=== PATIENT | female | born 1990 | race Caucasian/White ===

== ENCOUNTER 2025-01-28 22:30 | Emergency (ER) | payer MEDICAID ==
[~2025-01-28] VITALS: Ht 172.7 cm; Wt 89.7 kg
[2025-01-28 22:46] VITALS: BP 131/81; PULSE 77; RESP 15; TEMP 96.8; O2SAT 99
--- NOTE | 2025-01-28 23:06 | Physician Documentation ---
HPI ~ General Chief Complaint: Tooth Problem Stated Complaint: ORAL PAIN Time Seen by MD: 23:03 History of Present Illness HPI Comment This is a 34-year-old female that presents to the emergency department if for tooth pain x3 days. Patient reports she has a cracked tooth of the 2nd molar on the left top jaw. Patient reports he has been taking Tylenol and ibuprofen without improvement. Patient reports she has a history of gastric bypass she has to be very careful about taking multiple pills at 1 time as it makes her nauseated. Patient denies fevers significant swelling difficulty swallowing or any other symptoms at this time. Medication Reconciliation Allergies: Coded Allergies: Sulfa (Sulfonamide Antibiotics) (Verified Allergy, Unknown, 01/28/25) Review of Systems ROS As stated above in the HPI, otherwise all systems are reviewed and negative. Physical Exam Vital Signs: Temperature: 96.8, Source: Temporal, Heart Rate: 77, Respiratory Rate: 15, BP: 131/81, Pulse Oximetry: 99, Weight: 89.700 Physical Exam VITALS: Reviewed and as above. GENERAL: Alert, no apparent distress. HEENT: Normocephalic, atraumatic, PERRL, EOMI, dry mucosa, mild erythema and swelling at the gumline immediately around the broken tooth, no lymphadenopathy. RESPIRATORY: Lungs clear, normal breath sounds, no respiratory distress. CHEST: No accessory muscle use, no retractions CV: Regular rate, rhythm, no edema, no murmur, No: JVD GI: Soft, non-tender, bowels sounds present, no rebound, guarding, or rigidity BACK: No CVA tenderness, or swelling MUSCULOSKELETAL No deformities, no edema SKIN: Warm and dry, no rash NEURO: Oriented x4, No motor or sensory deficit PSYCH: Normal mood and affect, no agitation Progress Results/Orders Results/Orders Orders - YUE CABRERA [employer] Amox Tr/Potassium Clavulanate (Augmentin (01/28/25 23:10) Hydrocodone/Apap 5/325mg Tab ([place] 5/32 (01/28/25 23:10) Vital Signs 01/28/25 22:46 Temp 96.8 Pulse 77 Resp 15 B/P (MAP) 131/81 Pulse Ox 99 Medical Decision Making Findings Patient presents for dental pain due to suspected dental andrade. Patient not immunosuppressed, afebrile and well appearing with patent airway, have low suspicfion for deep space infection or any concern for airway compromise. Based on history, physical, and work up. No evidence of tooth fracture, avulsion, or bleeding socket. No evidence of RPA, REWINDER OPERATOR HELPER, Ludwigs angina, periapical abscess. Instructed patient to continue to treat pain with ibuprofen/acetaminophen until they see a dentist. Antibiotics and pain medication prescribed. Patient discharged home and will follow up with dentist. Discussed return precautions for odontogenic infections and other dental pain emergencies. Please take antibiotics as prescribed. Please take pain medication as pre scribed. Please follow up with her primary care provider. Please return to the emergency department with any worsening or recurrent symptoms or any additional concerning symptoms that we discussed here today i.e. fevers increased pain increased redness increased swelling difficulty swallowing or any other concerning symptoms. Differential Dx:Considerations: Include: Alveolar fracture, Alveolar osteitis, ANUG, Facial Cellulitis, Periapical abscess, Peridontal abscess, Post-extraction bleeding, Pulpitis, Tooth avulsion, Tooth eruption, Tooth Fracture, Trigeminal neuralgia, Tooth subluxation, Other Departure Disposition: 01 HOME / SELF CARE / HOMELESS Impression: Primary Impression: Toothache Additional Impression: Dental abscess Condition: Stable Discharge Instructions: Dental Pain, Dental Abscess Additional Instructions: Patient presents for dental pain due to suspected dental andrade. Patient not immunosuppressed, afebrile and well appearing with patent airway, have low suspicfion for deep space infection or any concern for airway compromise. Based on history, physical, and work up. No evidence of tooth fracture, avulsion, or bleeding socket. No evidence of RPA, REWINDER OPERATOR HELPER, Ludwigs angina, periapical abscess. Instructed patient to continue to treat pain with ibuprofen/acetaminophen until they see a dentist. Antibiotics and pain medication prescribed. Patient discharged home and will follow up with dentist. Discussed return precautions for odontogenic infections and other dental pain emergencies. Please take antibiotics as prescribed. Please take pain medication as prescri bed. Please follow up with her primary care provider. Please return to the emergency department with any worsening or recurrent symptoms or any additional concerning symptoms that we discussed here today i.e. fevers increased pain increased redness increased swelling difficulty swallowing or any other concerning symptoms. Referrals: NO PRIMARY CARE PROVIDER (PCP) Prescriptions Hydrocodone Bit/Acetaminophen 5/325 MG ([place] 5/325 MG) 5 Mg/325 Mg Tablet 1 TAB PO Q6H PRN for pain for 3 Days, #12 TAB Prov: YUE CABRERA 01/28/25 Amox Tr/Potassium Clavulanate 875/125 MG (Augmentin 875/125 MG) 875 Mg-125 Mg Tablet 1 TAB PO Q12H for 10 Days, #20 TAB Prov: YUE CABRERA 01/28/25 Education Educated: Patient Educated regarding: diagnosis, treatment, need for follow up Signature Scribe Signature: A Attestation: Scribed for Yue Cabrera by AMY Mcdowell . 01/28/25 23:11 YUE CABRERA Jan 28, 2025 23:06
[2025-01-28] MEDS ORDERED: AMOX-580 PO (23:10)
[2025-01-28] MEDS ORDERED: HYDR-3965 PO (23:10)
[2025-01-28] MEDS: amox tr/potassium clavulanate 875/125mg TAB PO ONE (23:45)
[2025-01-28] MEDS: HYDROcodone/acetaminophen 5mg/325mg tablet PO ONE (23:46)
== END 2025-01-28 23:47 | disposition home or self-care (01) ==
LOC: ER 22:31
DX: K04.7 Periapical abscess without sinus (principal); Z88.2 Allergy status to sulfonamides
CPT/HCPCS: 99283